=== PATIENT | female | born 1935 | race Caucasian/White ===

== ENCOUNTER → 2017-05-13 | Outpatient (CLI) | payer OTHER ==
[~2017-05-13] MED LIST: CLINDAMYCIN HC300 MG PO; COZAAR25 MG PO; DARVOCET-N 1001 TAB; HYZAAR; LORCET PLUS 7.1 EACH PO; SYNTHROID PO; TYLENOL #3 PO; ULTRAM PO; UNKNOWN THYROID MED; XARELTO15 MG PO; ZOFRAN ODT4 MG/UDTAB PO; [UNRECOGNIZED DRUG - OTHER]; [UNRECOGNIZED DRUG - REMARK]
--- NOTE | ~2017-05-13 | CT57 ---
[facility]. [facility] A Service of [facility] & [facility] RADIOLOGY TEXT RESULTS PATIENT: CURLY GALLARDO LOCATION: [facility] : 33 UNIT #: [id number] AGE: [address]: KODY CALDERÓN SEX: F ORDER DR: [id number] [address] [address] [id number] O MR#: [id number] #: [id number] NAME: CURLY GALLARDO. : 1935 SEX: F STUDY DATE/TIME: 05/13/2017 10:52 UNIT: [facility] ROOM: STUDY DESCRIPTION: CT Chest Wo Cont Attending Physician: Kody Calderón M.D. Referring Physician: Kody Calderón M.D. Primary Care Physician: Kody Calderón M.D. MEDICAL IMAGING REPORT This report is preliminary unless electronic signature is present. EXAM CT chest without contrast. HISTORY Midsternal pain off and on for 3 weeks, shortness of air. COMPARISON CT chest with contrast, 10/01/2016. TECHNIQUE Axial images performed through the chest without contrast. Multiplanar reconstructed images reviewed. This CT exam was performed with one or more of the following radiation dose reduction techniques: automatic exposure control, adjustment of mA and/or kV according to patient size, and iterative reconstruction. FINDINGS Examination demonstrates diffuse lung disease with mild diffuse emphysematous changes. Focal fibrosis and scarring is seen in the posterior aspect of the left lower lobe with some tethering to the pleural surface. This measures about 1.3 x 0.9 cm and is not significantly changed when compared to the September study. Stability supports a benign etiology. There is a noncalcified ovoid nodule in the right posterior costophrenic sulcus which measures about 1.4 x 1.9 cm. This appears to increase when compared to prior studies from May 2016, and September 2016. This could still represent a benign process but given its interval growth, this concern is raised for malignancy. There is extensive pleural calcifications within both lungs with associated pleural plaquing. This may be related to prior inflammatory disease or possible asbestos related disease. Trachea and bronchi unremarkable. No effusions or active pneumonitis. Mild cardiomegaly. The aorta and pulmonary vessels unremarkable. Small STS. [facility] A Service of [facility] & [facility] RADIOLOGY TEXT RESULTS PATIENT: CURLY GALLARDO LOCATION: [facility] : 33 UNIT #: [id number] AGE: [address]: KODY CALDERÓN SEX: F ORDER DR: amount of mediastinal lymphadenopathy. There is probable calcified right infrahilar node. In the right cardiophrenic sulcus there is a 2 x 3.7 cm low-attenuation lesion which may represent a small pericardial cyst. This is unchanged. Low-attenuation adrenal lesion noted in the left adrenal measuring 2.8 x 2.1 cm. This shows negative attenuation and is consistent with a lipid rich adrenal adenoma. Osseous structures remarkable for old right-sided rib fractures. Mild degenerative changes of the thoracic spine. Thoracic inlet unremarkable. IMPRESSION 1. Continued increase in noncalcified parenchymal or pleural based nodule in the right posterior costophrenic sulcus. This now measures about 1.4 x 1.9 cm, and has shown interval growth when compared to studies dating back to May of 2016. Potentially this could represent round atelectasis, but in this patient with a history of mesothelioma and underlying malignancy, this could represent recurrent or new malignancy. 2. Extensive pleural calcifications and pleural plaquing, may be related to asbestos-related disease or less likely prior trauma or infection. 3. Stable focal scarring and fibrosis left posterior lung base. Stability over previous exams favors benign etiology. 4. Background emphysema and fibrosis. 5. Stable left adrenal adenoma. 6. Not mentioned above there is a low-attenuation lesion in the left lobe of the liver unchanged from September 2016, probably represents a cyst or other benign lesion. Dictated by... Nya Ortiz M.D. THIS IS AN ELECTRONICALLY VERIFIED REPORT Nya Ortiz M.D. at 05/17/2017 10:16 AM JERI/varinder TD: 05/13/2017 18:40 JOB #: [id number] MEDICAL IMAGING REPORT Page 1 of 1
== END | disposition home or self-care (01) ==
LOC: SCT 10:25
DX: R91.1 Solitary pulmonary nodule (principal); J84.10 Pulmonary fibrosis, unspecified; D35.02 Benign neoplasm of left adrenal gland
CPT/HCPCS: 71250